=== PATIENT | male | born 1960 | race Caucasian/White ===

== ENCOUNTER 2016-09-12 14:01 | Observation (INO) | payer BC ==
[~2016-09-12] VITALS: Ht 177.8 cm; Wt 79.5 kg
[~2016-09-12 14:01] MED LIST: ADVIL200 MG PO; ARAVA 20MG TABL20 MG PO; ARAVA10 MG PO; HUMIRA40 MG/0.1 SC; INDOCIN SR 75MG75 MG PO; NORCO 325 MG-51 TAB PO; PLAQUENIL 200M200 MG PO; PRINZIDE 12.5 M1 TAB PO
[2016-09-12 14:39] LABS: BASO % 0.9 % (0.0-2.0); EOS % 0.5 % (0-4.0); GRAN # 2.8 (1.4-6.5); GRAN % 63.9 % (42.2-75.2); HEMATOCRIT 41.5 % (42.0-52.0); HEMOGLOBIN 13.7 g/dl (13.5-18.0); LYMPH # 1.1 (1.2-3.4); LYMPH % 24.8 % (20.0-51.0); MEAN CELL VOLUME 96 fl (80.0-100.0); MEAN CORPUSCULAR HEMOGLOBIN 32 pg (27.0-31.0); MEAN CORPUSCULAR HGB CONC 33 g/dl (33.0-37.0); MEAN PLATELET VOLUME 9.6 fl (7.4-10.4); MONO # 0.4 (0.1-0.6); MONO % 9.7 % (1.7-9.3); PLATELET COUNT 238 K/mm3 (130-400); RED BLOOD COUNT 4.34 M/mm3 (4.20-5.60); REDCELL DISTRIBUTION WIDTH-CV 13.4 % (11.5-14.5); WHITE BLOOD COUNT 4.4 K/mm3 (4.8-10.8)
[2016-09-12 14:43] LABS: PROTHROMBIN TIME 11.2 SECONDS (9.7-12.8)
[2016-09-12 14:46] LABS: PARTIAL THROMBOPLASTIN TIME 29.7 SECONDS (26.0-37.0)
[2016-09-12 14:52] LABS: ADJUSTED CALCIUM 8.7 mg/dL (8.4-10.2); ALANINE AMINOTRANSFERASE 26 U/L (21-72); ALBUMIN 4.3 gm/dL (3.5-5.0); ALKALINE PHOSPHATASE 59 U/L (50-136); ANION GAP 13 mmol/L (7-16); BILIRUBIN,TOTAL 1.2 mg/dL (0.0-1.0); BLOOD UREA NITROGEN 12 mg/dL (9-20); CALCIUM 8.9 mg/dL (8.4-10.2); CARBON DIOXIDE 23 mmol/L (22-30); CHLORIDE 97 mmol/L (98-107); CREATININE, serum 0.76 mg/dL (0.66-1.25); GLUCOSE 96 mg/dL (74-106); SODIUM 133 mmol/L (137-145); TOTAL PROTEIN 7.3 gm/dL (6.4-8.2)
[2016-09-12 14:56] LABS: C-REACTIVE PROTEIN < 0.5 mg/dL (0.0-0.9)
[2016-09-12 15:02] LABS: TROPONIN-I < 0.012 ng/mL (0.000-0.034)
[2016-09-12 15:13] LABS: PH 5 (5-8); SQUAMOUS EPITHELIAL None Seen /hpf; URINE APPEARANCE Clear; URINE BACTERIA None Seen /hpf; URINE BILIRUBIN Negative (NEGATIVE); URINE BLOOD Negative (NEGATIVE); URINE COLOR Yellow; URINE GLUCOSE Negative (NEGATIVE); URINE KETONE 2+ (NEGATIVE); URINE RBC 0-2 /hpf; URINE UROBILINOGEN Negative (NEGATIVE); URINE WBC 0-2 /hpf
[2016-09-12] MEDS ORDERED: PRILOTC PO (18:04)
[2016-09-12 18:14] VITALS: BP 130/77; PULSE 64; TEMP 98.2
[2016-09-12] MEDS ORDERED: MOTRIN 200200 MG/TAB PO (19:47)
[2016-09-12 20:15] VITALS: BP 133/69; PULSE 69; TEMP 97.6
[2016-09-13] VITALS (13 sets, daily range): BP systolic 105–151; BP diastolic 57–87; PULSE 57–131; TEMP 97.8–98.4
[2016-09-13] MEDS ORDERED: ASPIRIN E.C. 8181 MG PO (13:21)
[2016-09-13] MEDS ORDERED: LIPITOR20 MG PO (13:22)
== END 2016-09-13 18:30 | disposition home or self-care (01) ==
LOC: COL.ER 14:01 → MEDICAL 16:21
PROVIDERS: Family Medicine; Internal Medicine
DX: R07.9 Chest pain, unspecified (principal); I25.10 Atherosclerotic heart disease of native coronary artery without angina pectoris; I34.0 Nonrheumatic mitral (valve) insufficiency; R42 Dizziness and giddiness; R01.1 Cardiac murmur, unspecified; M06.9 Rheumatoid arthritis, unspecified; R63.4 Abnormal weight loss; Z68.25 Body mass index [BMI] 25.0-25.9, adult; R79.1 Abnormal coagulation profile
CPT/HCPCS: 99223-AI; A9502; C1760; G0103; G0378; J1650; J2250; J2405; J2785; J3010; J7030; Q9967

== ENCOUNTER → 2018-03-11 | Outpatient (CLI) | payer BC ==
[~2018-03-11] VITALS: Ht 177.8 cm; Wt 85.9 kg
[~2018-03-11] MED LIST changes: +ASPIRIN E.C. 8181 MG PO; +LIPITOR20 MG PO; +LIVALO2 MG PO; +MOTRIN 200200 MG/TAB PO; +PRILOTC PO
[2018-03-11 13:35] VITALS: BP 136/92; PULSE 72
[2018-03-11 14:00] VITALS: BP 138/90; PULSE 64
== END ==
LOC: COL.RAD 13:17
DX: M48.061 Spinal stenosis, lumbar region without neurogenic claudication (principal); M54.16 Radiculopathy, lumbar region
CPT/HCPCS: J3301

== ENCOUNTER 2021-04-27 07:09 | Emergency (ER) | payer BC ==
[~2021-04-27] VITALS: Ht 182.9 cm; Wt 84.1 kg
[2021-04-27 07:11] VITALS: TEMP 97.8
[2021-04-27 07:24] LABS: BASO % 0.5 % (0.0-2.0); EOS % 0.8 % (0.0-4.0); GRAN # 2.2 K/mm3 (1.4-6.5); GRAN % 60.6 % (42.2-75.2); HEMOGLOBIN 13.8 g/dl (13.5-18.0); LYMPH % 27.4 % (20.0-51.0); MEAN CELL VOLUME 94 fl (80.0-100.0); MEAN CORPUSCULAR HEMOGLOBIN 33 pg (27-31); MEAN CORPUSCULAR HGB CONC 35 g/dl (33.0-37.0); MEAN PLATELET VOLUME 8.8 fl (7.4-10.4); MONO # 0.4 K/mm3 (0.1-0.6); MONO % 10.4 % (1.7-9.3); PLATELET COUNT 296 K/mm3 (130-400); RED BLOOD COUNT 4.16 M/mm3 (4.20-5.60); REDCELL DISTRIBUTION WIDTH-CV 12.3 % (11.5-14.5)
[2021-04-27 07:43] LABS: ALBUMIN 4.1 gm/dL (3.4-4.8); BILIRUBIN,TOTAL 0.6 mg/dL (0.2-1.2); CREATININE, serum 0.89 mg/dL (0.72-1.25); TOTAL PROTEIN 6.9 gm/dL (6.2-8.1)
[2021-04-27 08:50] LABS: COLLECTION METHOD CLEAN CATCH
[2021-04-27 08:56] LABS: MUCOUS Present (NOT PRESENT); PH 8 (5-8); SQUAMOUS EPITHELIAL None Seen /hpf (0-10); URINE APPEARANCE Clear (CLEAR/HAZY); URINE BACTERIA None Seen /hpf (NONE SEEN); URINE BILIRUBIN Negative (NEGATIVE); URINE BLOOD Negative (NEGATIVE); URINE COLOR Amber (YELLOW); URINE GLUCOSE Negative (NEGATIVE); URINE KETONE Trace (NEGATIVE); URINE LEUKOCYTE ESTERASE Negative (NEGATIVE); URINE NITRATE Negative (NEGATIVE); URINE PROTEIN(semi-quant) 1+ (NEGATIVE); URINE RBC 0-2 /hpf (0-2); URINE UROBILINOGEN Negative (NEGATIVE)
[2021-04-27] MEDS ORDERED: NORCO 325 MG-51 TAB PO ×3 (09:43→11:07)
[2021-04-27] MEDS ORDERED: ZOFRAN ODT4 MG PO ×3 (09:43→11:07)
[2021-04-27 10:41] VITALS: BP 135/68; PULSE 68
== END 2021-04-27 10:41 | disposition home or self-care (01) ==
LOC: COL.ER 07:09
PROVIDERS: Emergency Medicine
DX: R10.9 Unspecified abdominal pain (principal); D72.819 Decreased white blood cell count, unspecified; I10 Essential (primary) hypertension; Z79.899 Other long term (current) drug therapy
CPT/HCPCS: J1885; J2270; J2405; J3010; J7120; Q9967

== ENCOUNTER → 2023-12-06 | Day surgery (SDC) | payer MEDICARE, OTHER ==
[~2023-12-06] VITALS: Ht 182.9 cm; Wt 79.7 kg
[~2023-12-06] MED LIST changes: +ALEVE 220MG220 MG PO; +AZULFIDINE500 MG/TAB PO; +LR 1,000 ML IV SCH; +Labetalol 100 MG/20 ML Multi-Dose VIAL ONE; +Lidocaine PF 2% (20 MG/ML) 5 ML VIAL ONE; +Ondansetron 4 MG/2 ML VIAL IV PRN; +XELJANZ XR11 MG PO; +XELJANZ10 MG PO; +ZOFRAN ODT4 MG PO
[2023-12-06 07:35] VITALS: BP 140/92; PULSE 60; TEMP 97.3
--- NOTE | 2023-12-06 08:10 | NUR ---
0810 pt arrives to [facility]. pt assisted to recliner with two assist. ivf hanging. pt alert. spouse present. pt had a coloscopy and denies pain or passing gas. 0817 pt given snack of juice adn muffin. 0830 [id number] given for discharge with spouse present. all question invited and answered. 0850 doctor into see patient. given additional information. 0900 pt taken out to [facility] in wheelchair with staff and spouse.
[2023-12-06 08:15] VITALS: BP 122/79; PULSE 63
[2023-12-06 08:30] VITALS: BP 129/94; PULSE 55
== END ==
LOC: SDCO 11-29 08:15
DX: Z12.11 Encounter for screening for malignant neoplasm of colon (principal); K57.30 Diverticulosis of large intestine without perforation or abscess without bleeding; F17.290 Nicotine dependence, other tobacco product, uncomplicated; Z79.82 Long term (current) use of aspirin
CPT/HCPCS: J1920; J2704; J7120